=== PATIENT | female | born 1950 | race Two or more races ===

== ENCOUNTER 2023-06-14 09:04 | Emergency (ER) | payer OTHER ==
[~2023-06-14] VITALS: Ht 167.6 cm; Wt 93.0 kg
[2023-06-14] MEDS ORDERED: LOSARTAN-HCTZ1 EAC2 PO (09:40)
[2023-06-14] MEDS ORDERED: TORSEMIDE10 MG PO (09:40)
[2023-06-14] MEDS ORDERED: SPIRONOLACTONE25 MG PO (09:40)
[2023-06-14] MEDS ORDERED: PLAVIX75 MG PO (09:41)
[2023-06-14] MEDS ORDERED: PEPCID AC20 MG PO (09:41)
[2023-06-14] MEDS ORDERED: TIROSINT50 MCG PO (09:41)
== END 2023-06-14 10:45 | disposition home or self-care (01) ==
LOC: ER 09:04
DX: L03.115 Cellulitis of right lower limb (principal); Z88.6 Allergy status to analgesic agent
CPT/HCPCS: 96372; 99284; J0690

== ENCOUNTER 2023-07-17 09:12 | Inpatient (IN) | payer OTHER ==
[~2023-07-17] VITALS: Ht 152.4 cm; Wt 9298.6 kg
[~2023-07-17 09:12] MED LIST: LOSARTAN-HCTZ1 EAC2 PO; PEPCID AC20 MG PO; PLAVIX75 MG PO; SPIRONOLACTONE25 MG PO; TIROSINT50 MCG PO; TORSEMIDE10 MG PO
[2023-07-17 12:04] LABS: HEMATOCRIT 34.8 % (36.0-45.00); HEMOGLOBIN 11.7 g/dL (12.0-15.00); MEAN CELL VOLUME 94.4 fL (80.00-100.00); MEAN CORPUSCULAR HEMOGLOBIN 31.7 pg (27.00-32.0); MEAN CORPUSCULAR HGB CONC 33.6 g/dl (32.0-36.0); PLATELET COUNT 220 K/uL (150-450); RED BLOOD COUNT 3.69 M/uL (4.00-6.00); RED CELL DISTRIBUTION WIDTH 14.3 % (11.5-14.5)
[2023-07-17 12:29] LABS: CALCIUM 9.6 mg/dL (8.5-10.1); CREATININE SERUM 0.87 mg/dL (0.55-1.02); GFR 63.65; POTASSIUM 3.71 mEq/L (3.5-5.1)
[2023-07-17 15:05] LABS: PH,URINE 5.5 (5.0-8.0); URINE APPEARANCE Cloudy; URINE BILIRRUBIN Negative (NEGATIVE); URINE BLOOD Negative; URINE COLOR Yellow; URINE GLUCOSE Negative (NEGATIVE); URINE LEUKOCYTE Large; URINE NITRATE Negative; URINE PROTEIN Negative (NEGATIVE)
[2023-07-17 15:09] LABS: URINE EPITHELIAL CELLS 196.3 uL (0.0-38.8); URINE RBC 3.7 uL (0.0-20.8); URINE WBC 279.2 uL (0.0-23.2)
[2023-07-17 15:28] LABS: URINE BACTERIA > 9821.5 uL (0.0-1933)
[2023-07-17 19:16] LABS: D DIMER 0.7 MG/L; PARTIAL THROMBOPLASTIN TIME 25.7 SECONDS (22.0-34.0)
[2023-07-17 21:24] LABS: PROTHROMBIN TIME 10.5 SECONDS (9.0-11.5)
[2023-07-18 07:59] LABS: TSH 1.32 uIU/mL (0.358-3.74)
[2023-07-22 07:58] LABS: HEMATOCRIT 33.4 % (36.0-45.00); HEMOGLOBIN 11.3 g/dL (12.0-15.00); MEAN CELL VOLUME 93.6 fL (80.00-100.00); MEAN CORPUSCULAR HEMOGLOBIN 31.6 pg (27.00-32.0); MEAN CORPUSCULAR HGB CONC 33.7 g/dl (32.0-36.0); RED BLOOD COUNT 3.57 M/uL (4.00-6.00); RED CELL DISTRIBUTION WIDTH 13.9 % (11.5-14.5)
[2023-07-22 08:24] LABS: PLATELET COUNT 224 K/uL (150-450)
[2023-07-22 08:41] LABS: CALCIUM 8.7 mg/dL (8.5-10.1); CREATININE SERUM 0.59 mg/dL (0.55-1.02); GFR 99.64; POTASSIUM 3.76 mEq/L (3.5-5.1)
[2023-07-24 11:41] LABS: PH,URINE 5.5 (5.0-8.0); URINE APPEARANCE Clear; URINE BILIRRUBIN Negative (NEGATIVE); URINE BLOOD Moderate; URINE COLOR Yellow; URINE GLUCOSE Negative (NEGATIVE); URINE LEUKOCYTE Negative; URINE NITRATE Negative; URINE PROTEIN Negative (NEGATIVE); URINE UROBILINOGEN 0.2 E.U./dl
[2023-07-24 11:44] LABS: URINE BACTERIA 13.8 uL (0.0-1933); URINE EPITHELIAL CELLS 4.3 uL (0.0-38.8); URINE RBC 84.6 uL (0.0-20.8); URINE WBC 3.7 uL (0.0-23.2)
[2023-07-24 12:08] LABS: INR 1.02; PARTIAL THROMBOPLASTIN TIME 29.6 SECONDS (22.0-34.0); PROTHROMBIN TIME 10.7 SECONDS (9.0-11.5)
== END 2023-07-25 11:32 | disposition designated cancer center or children's hospital (05) | DRG 280 ==
LOC: ER 09:12 → ICU-2 17:51 → ICU 07-19 10:42
PROVIDERS: Emergency Medicine; General Practice; ADMIT Internal Medicine; ATTEND Internal Medicine
PROC: 4A12X4Z Monitoring of Cardiac Electrical Activity, External Approach (ICD-10-PCS; principal; 2023-07-17)
PROC: B246ZZZ Ultrasonography of Right and Left Heart (ICD-10-PCS; 2023-07-17)
PROC: 3E0F7SF Introduction of Other Gas into Respiratory Tract, Via Natural or Artificial Opening (ICD-10-PCS; 2023-07-17)
PROC: 02HV33Z Insertion of Infusion Device into Superior Vena Cava, Percutaneous Approach (ICD-10-PCS; 2023-07-19)
DX: I11.0 Hypertensive heart disease with heart failure (principal); I50.33 Acute on chronic diastolic (congestive) heart failure; I21.4 Non-ST elevation (NSTEMI) myocardial infarction; I35.0 Nonrheumatic aortic (valve) stenosis; I25.10 Atherosclerotic heart disease of native coronary artery without angina pectoris; I69.328 Other speech and language deficits following cerebral infarction; I69.320 Aphasia following cerebral infarction; K59.00 Constipation, unspecified; E03.9 Hypothyroidism, unspecified; E11.9 Type 2 diabetes mellitus without complications

== ENCOUNTER 2023-07-31 09:22 | Emergency (ER) | payer OTHER ==
[~2023-07-31] VITALS: Ht 157.5 cm; Wt 100.7 kg
[2023-07-31] MEDS ORDERED: QBRELIS1 MG/1 ML PO (09:58)
[2023-07-31] MEDS ORDERED: NORVASC2.5 M1 PO (09:59)
[2023-07-31] MEDS ORDERED: LEVOTHYROXINE25 MCG PO (09:59)
[2023-07-31] MEDS ORDERED: APRESOLINE 10MG10 MG PO (10:00)
== END 2023-07-31 12:41 | disposition home or self-care (01) ==
LOC: ER 09:23
DX: T82.898A Other specified complication of vascular prosthetic devices, implants and grafts, initial encounter (principal); Z88.6 Allergy status to analgesic agent; Z45.2 Encounter for adjustment and management of vascular access device

== ENCOUNTER 2024-03-12 08:35 | Inpatient (IN) | payer OTHER ==
[~2024-03-12] VITALS: Ht 152.4 cm; Wt 259.9 kg
[~2024-03-12 08:35] MED LIST changes: +APRESOLINE 10MG10 MG PO; +LEVOTHYROXINE25 MCG PO; +NORVASC2.5 M1 PO; +QBRELIS1 MG/1 ML PO
[2024-03-12] MEDS ORDERED: ATORVASTATIN CA40 MG PO (08:45)
--- NOTE | 2024-03-12 08:45 | NUR ---
SE RECIBE FEMINA ALERTA Y ORIENTADA X3 CUAL REFIERE PRESENTA DOLOR EN PARTE INFERIOR DEL ABDOMEN. SE OBSERVA AREA ENROJECIDA, INFLAMADA, CALIENTE Y DOLOROSA AL TACTO. SE CLAUDIA S/V Y SE UBICA.
[2024-03-12] MEDS ORDERED: CEFTRIAXONE SODIUM 1,000 MG VIAL ONE (08:56)
[2024-03-12] MEDS ORDERED: 0.9 % SODIUM CHLORIDE 1,000 ML IV SCH (09:00)
[2024-03-12] MEDS ORDERED: CEFTRIAXONE SODIUM 1,000 MG VIAL IV ONE (09:00)
--- NOTE | 2024-03-12 09:04 | NUR ---
PACIENTE EVALUADA POR MD BRANDTIEN ORDENA TRATAMIENTO MEDICO, RN WHITE LE ORIENTA A PACIENTE SOBRE EL MISMO Y VERBALIZA ENTENDER, SE LE COLECTA MUESTRAS DE LABORATORIO Y LE CANALIZA BAJO MEDIDAS ASEPTICAS, SE LE ADMNSITRAN MEDICAMENTOS DARVIN IZABELLA. PACIENTE TOLERA Y NO PRESENTA REACCION ADVERSA. PENDIENTE ENTREGA DE U/A.
[2024-03-12 09:39] LABS: HEMATOCRIT 31.6 % (36.0-45.00); HEMOGLOBIN 10.4 g/dL (12.0-15.00); MEAN CELL VOLUME 91.3 fL (80.00-100.00); MEAN CORPUSCULAR HGB CONC 32.8 g/dl (32.0-36.0); PLATELET COUNT 253 K/uL (150-450); RED BLOOD COUNT 3.46 M/uL (4.00-6.00); RED CELL DISTRIBUTION WIDTH 14.8 % (11.5-14.5)
[2024-03-12 10:13] LABS: URINE APPEARANCE Clear; URINE BILIRRUBIN Negative (NEGATIVE); URINE BLOOD Negative; URINE COLOR Yellow; URINE GLUCOSE Negative (NEGATIVE); URINE KETONE Negative (NEGATIVE); URINE LEUKOCYTE Negative; URINE NITRATE Negative; URINE PROTEIN Negative (NEGATIVE); URINE UROBILINOGEN 0.2 E.U./dl
[2024-03-12 10:14] LABS: URINE BACTERIA 229.3 uL (0.0-1933)
[2024-03-12 10:15] LABS: URINE CAST 0.15 uL (0.0-1.40); URINE RBC 0.1 uL (0.0-20.8)
[2024-03-12 10:48] LABS: CALCIUM 9.2 mg/dL (8.5-10.1); CREATININE SERUM 0.81 mg/dL (0.55-1.02); GFR 68.93; POTASSIUM 3.73 mEq/L (3.5-5.1)
[2024-03-12] MEDS ORDERED: POVIDONE-IODINE 118 ML BOTT TOP ONE (11:27)
[2024-03-12] MEDS ORDERED: MEPERIDINE HCL/PF 25 MG/ML VIAL IV ONE (12:00)
[2024-03-12] MEDS ORDERED: FAMOTIDINE/PF 20 MG in 0.9 % SODIUM CHLORIDE 100 ML IV SCH (14:01)
[2024-03-12] MEDS ORDERED: CEFTRIAXONE SODIUM 2,000 MG in 0.9 % SODIUM CHLORIDE 100 ML IV SCH (14:01)
[2024-03-12] MEDS ORDERED: CLOPIDOGREL BISULFATE 75 MG TABLET PO SCH (14:02)
[2024-03-12] MEDS ORDERED: ATORVASTATIN CALCIUM 40 MG TABLET PO SCH (14:02)
[2024-03-12] MEDS ORDERED: MORPHINE SULFATE 2 MG/ML CARTRIDGE IV PRN (14:15)
[2024-03-12] MEDS ORDERED: ACETAMINOPHEN 325 MG TABLET PO PRN (14:15)
[2024-03-12] MEDS ORDERED: CLOPIDOGREL BISULFATE 75 MG TABLET PO ONE (15:19)
[2024-03-12] MEDS ORDERED: FAMOTIDINE/PF 20 MG/2 ML VIAL ONE (15:19)
[2024-03-12] MEDS ORDERED: CEFTRIAXONE SODIUM 2,000 MG VIAL ONE (15:47)
[2024-03-12] MEDS ORDERED: HALOPERIDOL LACTATE 5 MG/ML AMPUL IV PRN (17:45)
[2024-03-13] MEDS ORDERED: LEVOTHYROXINE SODIUM 25 MCG TABLET PO SCH (06:00)
[2024-03-14] MEDS ORDERED: LACTULOSE 20 G/30 ML BLIST.PACK PO SCH (17:00)
== END 2024-03-15 11:16 | disposition home or self-care (01) | DRG 603 ==
LOC: ER 08:36 → SEC-K 14:34 → SURH 14:34
PROVIDERS: Emergency Medicine; ADMIT Internal Medicine; ATTEND Internal Medicine
PROC: 0W9F3ZZ Drainage of Abdominal Wall, Percutaneous Approach (ICD-10-PCS; principal; 2024-03-12)
DX: L02.216 Cutaneous abscess of umbilicus (principal); M79.3 Panniculitis, unspecified; B96.89 Other specified bacterial agents as the cause of diseases classified elsewhere; B96.1 Klebsiella pneumoniae [K. pneumoniae] as the cause of diseases classified elsewhere; B96.6 Bacteroides fragilis [B. fragilis] as the cause of diseases classified elsewhere

== ENCOUNTER 2024-04-18 08:57 | Inpatient (IN) | payer OTHER ==
[~2024-04-18] VITALS: Ht 162.6 cm; Wt 97.5 kg
[~2024-04-18 08:57] MED LIST changes: +ATORVASTATIN CA40 MG PO
[2024-04-18] MEDS ORDERED: LASIX20 MG (09:06)
[2024-04-18] MEDS ORDERED: CIPRO500 MG (09:07)
[2024-04-18 10:35] LABS: HEMATOCRIT 35.7 % (36.0-45.00); HEMOGLOBIN 11.6 g/dL (12.0-15.00); MEAN CELL VOLUME 92.5 fL (80.00-100.00); MEAN CORPUSCULAR HEMOGLOBIN 30.1 pg (27.00-32.0); MEAN CORPUSCULAR HGB CONC 32.6 g/dl (32.0-36.0); PLATELET COUNT 254 K/uL (150-450); RED BLOOD COUNT 3.86 M/uL (4.00-6.00); RED CELL DISTRIBUTION WIDTH 15.3 % (11.5-14.5)
[2024-04-18 11:01] LABS: INR 1.02; PARTIAL THROMBOPLASTIN TIME 25.6 SECONDS (22.0-34.0); PROTHROMBIN TIME 11.1 SECONDS (9.0-11.5)
[2024-04-18 11:03] LABS: ALBUMIN 3.1 gm/dL (3.4-5.0); BILIRUBIN TOTAL 0.27 mg/dL (0.3-1.2); CALCIUM 9.1 mg/dL (8.5-10.1); CREATININE SERUM 0.89 mg/dL (0.55-1.02); GFR 61.83; GLOBULINA 4.8 G/DL (2.4-3.5); POTASSIUM 4.01 mEq/L (3.5-5.1); TOTAL PROTEIN 7.9 gm/dL (6.4-8.2)
[2024-04-18 11:08] LABS: C-REACTIVE PROTEIN 0.56 MG/DL (0.00-0.29)
[2024-04-18 11:20] LABS: ERYTHROCYTE SEDIMENTATION RATE 59 mm/hr
[2024-04-18 11:56] LABS: ABG PH 7.438 (7.35-7.45); ABG pCO2 38.1 mmHg (35-45)
[2024-04-18 11:57] LABS: ABG PO2 85.3 mmHg (80-100)
[2024-04-18 11:58] LABS: BASE EXCESS 1.2 mmol/l; BICARBONATE 25.2 mmol/l (23-25); SaO2 96.8 %; Tco2 26.4 mmol/l; allen test SATISFACTORY; o2 21 %; puncture site RADIAL LEFT
[2024-04-18] MEDS ORDERED: DIPHENHYDRAMINE HCL 50 MG/ML VIAL 1ML ONE (13:42)
[2024-04-18 15:22] LABS: PH,URINE 6.5 (5.0-8.0); URINE APPEARANCE Clear; URINE BILIRRUBIN Negative (NEGATIVE); URINE BLOOD Negative; URINE COLOR Yellow; URINE GLUCOSE Negative (NEGATIVE); URINE KETONE Negative (NEGATIVE); URINE LEUKOCYTE Negative; URINE NITRATE Negative; URINE PROTEIN Negative (NEGATIVE); URINE UROBILINOGEN 0.2 E.U./dl
[2024-04-18 15:26] LABS: URINE BACTERIA 114.6 uL (0.0-1933); URINE EPITHELIAL CELLS 16.9 uL (0.0-38.8); URINE RBC 1.6 uL (0.0-20.8); URINE WBC 4.6 uL (0.0-23.2)
[2024-04-18] MEDS ORDERED: hydrALAZINE HCL 50 MG TABLET PO SCH (17:00)
[2024-04-18] MEDS ORDERED: HALOPERIDOL 0.5 MG TABLET PO ONE (17:00)
[2024-04-18] MEDS ORDERED: 0.9 % SODIUM CHLORIDE 1,000 ML IV SCH (20:00)
[2024-04-18] MEDS ORDERED: PIPERACILLIN/TAZOBACTAM SODIUM 3.375 GM in DEXTROSE 5 % IN WATER 100 ML IV SCH (20:03)
[2024-04-18] MEDS ORDERED: ONDANSETRON HCL 4 MG in 0.9 % SODIUM CHLORIDE 50 ML IV PRN (20:15)
[2024-04-18] MEDS ORDERED: ACETAMINOPHEN 500 MG GEL..CAP PO PRN (20:15)
[2024-04-18] MEDS ORDERED: PIPERACILLIN/TAZOBACTAM SODIUM 3.375 GM VIAL IV ONE ×2 (21:23→23:59)
[2024-04-19] VITALS (7 sets, daily range): BP systolic 163–186; BP diastolic 74–100; O2SAT 93–100
[2024-04-19] MEDS ORDERED: ATORVASTATIN CALCIUM 40 MG TABLET PO SCH (09:00)
[2024-04-19] MEDS ORDERED: hydrALAZINE HCL 50 MG TABLET PO SCH (09:00)
[2024-04-19] MEDS ORDERED: LISINOPRIL 20 MG TABLET PO SCH (09:00)
[2024-04-19] MEDS ORDERED: FAMOTIDINE/PF 20 MG in 0.9 % SODIUM CHLORIDE 8 ML IV PUSH SCH ×2 (09:00→21:00)
[2024-04-19] MEDS ORDERED: LISINOPRIL 40 MG TABLET PO SCH (09:00)
[2024-04-19] MEDS ORDERED: FUROsemide 20 MG TABLET PO SCH (09:00)
[2024-04-19] MEDS ORDERED: CEFTRIAXONE SODIUM 2,000 MG VIAL IV SCH (17:00)
[2024-04-19] MEDS ORDERED: METRONIDAZOLE/SODIUM CHLORIDE 100 ML IV SCH (17:00)
[2024-04-19 17:02] LABS: URINE APPEARANCE Cloudy; URINE BILIRRUBIN Negative (NEGATIVE); URINE BLOOD Moderate; URINE COLOR Yellow; URINE GLUCOSE Negative (NEGATIVE); URINE KETONE Negative (NEGATIVE); URINE LEUKOCYTE Negative; URINE NITRATE Negative; URINE PROTEIN Negative (NEGATIVE); URINE UROBILINOGEN 0.2 E.U./dl
[2024-04-19 17:03] LABS: URINE BACTERIA 22.6 uL (0.0-1933); URINE EPITHELIAL CELLS 2.1 uL (0.0-38.8); URINE RBC 621.4 uL (0.0-20.8); URINE WBC 19.3 uL (0.0-23.2)
[2024-04-19] MEDS ORDERED: HALOPERIDOL LACTATE 5 MG/ML AMPUL ONE (17:03)
[2024-04-19] MEDS ORDERED: HALOPERIDOL LACTATE 5 MG/ML AMPUL IV PRN (17:30)
[2024-04-19] MEDS ORDERED: DIPHENHYDRAMINE HCL 25 MG CAPSULE PO PRN (18:00)
[2024-04-19] MEDS ORDERED: DIPHENHYDRAMINE HCL 50 MG/ML VIAL 1ML IV PRN (18:00)
[2024-04-20] MEDS ORDERED: hydrALAZINE HCL 50 MG TABLET PO SCH (01:00)
[2024-04-20 02:39] VITALS: BP 130/81; O2SAT 96
[2024-04-20] MEDS ORDERED: hydrALAZINE HCL 50 MG,hydrALAZINE HCL 25 MG PO SCH (09:00)
[2024-04-20] MEDS ORDERED: CLOPIDOGREL BISULFATE 75 MG TABLET PO SCH (09:00)
[2024-04-20] MEDS ORDERED: ENOXAPARIN SODIUM 40 MG/0.4 ML SYRINGE SUBCUTANEO SCH (09:00)
[2024-04-20 09:18] VITALS: BP 165/79; O2SAT 85
[2024-04-20 09:33] LABS: HEMATOCRIT 34.3 % (36.0-45.00); HEMOGLOBIN 11.7 g/dL (12.0-15.00); MEAN CELL VOLUME 91.2 fL (80.00-100.00); MEAN CORPUSCULAR HEMOGLOBIN 31.2 pg (27.00-32.0); MEAN CORPUSCULAR HGB CONC 34.2 g/dl (32.0-36.0); PLATELET COUNT 207 K/uL (150-450); RED BLOOD COUNT 3.76 M/uL (4.00-6.00); RED CELL DISTRIBUTION WIDTH 16.3 % (11.5-14.5)
[2024-04-20] MEDS ORDERED: METOPROLOL SUCCINATE 25 MG TAB.SR.24H PO NR (12:43)
[2024-04-20 14:21] LABS: ALBUMIN 2.7 gm/dL (3.4-5.0); BILIRUBIN TOTAL 0.33 mg/dL (0.3-1.2); C-REACTIVE PROTEIN 1.26 MG/DL (0.00-0.29); CALCIUM 8.9 mg/dL (8.5-10.1); CREATININE SERUM 0.77 mg/dL (0.55-1.02); GFR 73.08; GLOBULINA 3.8 G/DL (2.4-3.5); MAGNESIUM 2.3 mg/dL (1.8-2.4); PHOSPHOROUS 3.4 mg/dL (2.5-4.9); POTASSIUM 3.5 mEq/L (3.5-5.1); TOTAL PROTEIN 6.5 gm/dL (6.4-8.2)
[2024-04-20 16:05] VITALS: BP 178/92; O2SAT 91
[2024-04-20] MEDS ORDERED: FLUCONAZOLE IN NACL,ISO-OSM 200 MG/100 ML PIGGYBAG IV NR (19:00)
[2024-04-21] MEDS ORDERED: hydrALAZINE HCL 50 MG TABLET PO SCH (01:00)
[2024-04-21 02:00] VITALS: BP 154/87; O2SAT 95
[2024-04-21] MEDS ORDERED: PATIENTS OWN MEDICATION (MEDICAMENTO EN PISO) PO SCH (05:00)
[2024-04-21 08:00] VITALS: BP 180/93; O2SAT 98
[2024-04-21] MEDS ORDERED: METOPROLOL SUCCINATE 25 MG TAB.SR.24H PO SCH (09:00)
[2024-04-21] MEDS ORDERED: NIFEDIPINE 30 MG TAB.SA.OSM PO SCH (16:21)
[2024-04-21] MEDS ORDERED: FLUCONAZOLE IN NACL,ISO-OSM 50 ML IV SCH (17:00)
[2024-04-21] MEDS ORDERED: FLUCONAZOLE IN NACL,ISO-OSM 2 MG/ML ML IV SCH (17:00)
[2024-04-21] MEDS ORDERED: FAMOTIDINE/PF 20 MG/2 ML VIAL ONE (20:19)
[2024-04-21 20:42] VITALS: BP 160/83; O2SAT 95
[2024-04-22 01:45] VITALS: BP 147/81
[2024-04-22 10:35] VITALS: BP 144/86
[2024-04-22 18:37] VITALS: BP 131/82
[2024-04-22] MEDS ORDERED: FAMOTIDINE/PF 20 MG/2 ML VIAL ONE (19:39)
[2024-04-23 02:20] VITALS: BP 131/71
[2024-04-23] MEDS ORDERED: FAMOTIDINE/PF 20 MG/2 ML VIAL ONE ×2 (08:28→20:45)
[2024-04-23 09:40] VITALS: BP 155/70; O2SAT 98
[2024-04-23 17:16] VITALS: BP 143/87; O2SAT 98
[2024-04-24 02:58] VITALS: BP 124/77; O2SAT 92
[2024-04-24] MEDS ORDERED: FAMOTIDINE/PF 20 MG/2 ML VIAL ONE (07:44)
[2024-04-24 09:47] VITALS: BP 158/87
[2024-04-24 17:39] VITALS: BP 160/64
[2024-04-25 03:18] VITALS: BP 144/72; O2SAT 94
[2024-04-25 10:00] VITALS: BP 141/73
== END 2024-04-25 13:08 | disposition home or self-care (01) | DRG 871 ==
LOC: ER 08:59 → SEC-K 20:56 → ICU-2 20:56 → MEDJ 04-19 16:58
PROVIDERS: General Practice; Internal Medicine Infectious Disease; ADMIT Internal Medicine; ATTEND Internal Medicine
PROC: BW28ZZZ Computerized Tomography (CT Scan) of Head (ICD-10-PCS; principal; 2024-04-18)
PROC: B030YZZ Magnetic Resonance Imaging (MRI) of Brain using Other Contrast (ICD-10-PCS; 2024-04-18)
PROC: BW21ZZZ Computerized Tomography (CT Scan) of Abdomen and Pelvis (ICD-10-PCS; 2024-04-18)
PROC: B345ZZZ Ultrasonography of Bilateral Common Carotid Arteries (ICD-10-PCS; 2024-04-18)
PROC: B24BYZZ Ultrasonography of Heart with Aorta using Other Contrast (ICD-10-PCS; 2024-04-18)
PROC: B54DZZZ Ultrasonography of Bilateral Lower Extremity Veins (ICD-10-PCS; 2024-04-19)
PROC: 02HV33Z Insertion of Infusion Device into Superior Vena Cava, Percutaneous Approach (ICD-10-PCS; 2024-04-19)
PROC: 4A12X4Z Monitoring of Cardiac Electrical Activity, External Approach (ICD-10-PCS; 2024-04-19)
DX: A41.9 Sepsis, unspecified organism (principal); I21.4 Non-ST elevation (NSTEMI) myocardial infarction; I63.9 Cerebral infarction, unspecified; L03.311 Cellulitis of abdominal wall; G45.9 Transient cerebral ischemic attack, unspecified; I10 Essential (primary) hypertension
CPT/HCPCS: 70544